=== PATIENT | female | born 1990 | race Caucasian/White ===

== ENCOUNTER 2016-09-10 06:44 | Inpatient (IN) | payer BC ==
[~2016-09-10] VITALS: Ht 167.6 cm; Wt 106.7 kg
--- NOTE | ~2016-09-10 | HP ---
PATIENT'S NAME: SHARRON FELTON [facility] AGE: 26 Y [address] ROOM: [address] [address] LOCATION: [facility] ADMIT DATE: 09/10/2016 History & Physical DISCHARGE DATE: FAMILY PHYSICIAN: Rae Barrett MD ATTENDING PHYSICIAN: Rae Barrett DATE OF SERVICE: This is a 26-year-old patient at 40 weeks 6 days. She is and was seen by Dr. Rae Barrett, throughout her . She had unfavorable cervix today at 40 weeks, 6 days. Cytotec was placed followed by Pitocin. Decelerations started with the Pitocin and they looked variable. Now, she is having less variables, but having some late decelerations after the contractions. The Pitocin has been turned off for over an hour, oxygen was on, and IV hydration was started. She has been consented for section. She understands surgical risks to include, but not limited to, bleeding, transfusion, infection, injury to other organs, and need for additional surgery. Appropriate consents were signed and witnessed. She also understands she will need sections in the future. We will get a cord pH thick and go from there. MD JOSELYN KELLEY/kellee /[id number] D: [id number] T: [id number] HISTORY & PHYSICAL
--- NOTE | ~2016-09-10 | OR ---
PATIENT'S NAME: SHARRON FELTON [facility] AGE: 26 Y [address] ROOM: [place] [address] LOCATION: [facility] ADMIT DATE: 09/10/2016 OR/Procedure Report DISCHARGE DATE: FAMILY PHYSICIAN: Rae Barrett MD ATTENDING PHYSICIAN: Rae Barrett SURGEON: Michelle Serrano MD CUSTOMER COUNTER ASSOCIATE: Arnold. DATE OF PROCEDURE: 09/10/2016 PREOPERATIVE DIAGNOSES: 1. Intrauterine at 40 weeks. 2. decelerations. 3. Intolerance to Pitocin. POSTOPERATIVE DIAGNOSES: 1. Intrauterine at 40 weeks. 2. decelerations. 3. Intolerance to Pitocin. PROCEDURE: Primary low transverse section. ANESTHESIA: Epidural. BLOOD LOSS: 500 mL. COMPLICATIONS: None. DESCRIPTION OF PROCEDURE: The patient was taken into the operating room and her epidural anesthetic was at an appropriate surgical level. A Coto catheter was already in place. So, she is prepped and draped. A Pfannenstiel skin incision was made with a knife and carried down to the level of fascia. The fascia was nicked in the midline. The incision was carried out laterally. The fascia sharply and bluntly dissected from the underlying rectus muscles. The peritoneum was opened sharply and incised. The bladder blade was placed. Bladder reflection was taken down sharply and placed behind the bladder blade. A low transverse uterine incision was made with a knife. The incision was taken out laterally at the bead forming machine set up operator's fingers. Bag of water was ruptured and found to be clear. vertex was grasped. I do have to flex the vertex to get it over the uterine incision. Shoulders and body were delivered. Baby girl lets out a spontaneous cry as her cord was doubly clamped and cut. She was handed off to the warmer after she was shown to the mother. score of 8 and 9 are assigned and she weighed 8 pounds 11 ounces. A three-vessel cord was noted. Placenta delivered manually and intact. The uterus was exteriorized. Tubes and ovaries looked normal. The uterine incision was closed in a running locking stitch with 0 chromic. A second imbricating PATIENT'S NAME: SHARRON FELTON [facility] AGE: 26 Y [address] ROOM: [place] [id number] LOCATION: [facility] ADMIT DATE: 09/10/2016 OR/Procedure Report DISCHARGE DATE: FAMILY PHYSICIAN: Rae Barrett MD ATTENDING PHYSICIAN: Rae Barrett stitch was performed. One suture of 0 Vicryl was nicked in the midline. The uterus was re-placed within the peritoneal cavity. The colic gutters were inspected found to be dry. 2-0 Vicryl's were used to close the peritoneum, 0 Vicryl was used to close the fascia. 2-0 Vicryl was used to close the subcutaneous adipose tissue and 4-0 Vicryl was used to close the skin. The patient tolerated the procedure well. She and baby are doing well in recovery. MICHELLE SERRANO MD K[facility]/modl /[id number] d: 09/11/16 0130 t: 09/25/16 0732, OPERATIVE SUMMARY
[~2016-09-10 06:44] MED LIST: PRENATAL 1+1)(P1 TAB PO; TUMS200 MG PO
[2016-09-10 07:37] LABS: BASOPHIL % 0.2 %; EOSINOPHIL % 0.3 %; HEMATOCRIT 37.5 % (33.0-46.0); HEMOGLOBIN 12.1 g/dL (11.0-15.0); IMMATURE GRANULOCYTE # 0.1 K/uL (0.0-0.3); IMMATURE GRANULOCYTE % 0.5 %; LYMPHOCYTE # 1.9 K/uL (0.8-4.0); LYMPHOCYTE % 14.6 %; MCH 27.6 pg (27.0-34.0); MCHC 32.3 gm/dL (32.0-36.5); MCV 85.6 fl (83.0-98.0); MPV 10.5 fl (9.4-12.4); NEUTROPHIL # (ANC) 9.8 K/uL (1.8-7.8); NEUTROPHIL % 76.4 %; NRBC % 0 /100WBC (0-0.00); PLATELET COUNT 223 K/uL (150-450); RBC 4.38 M/uL (3.50-5.00); RDW-CV 14.5 % (11.9-14.6); WBC 12.8 K/uL (4.0-11.0)
[2016-09-10 18:41] LABS: PCO2 48 mmHg (35-45)
[2016-09-10 18:44] LABS: BICARBONATE 22.4 mmol/L (18.0-23.0); PO2 14 mmHg (80-90)
--- NOTE | 2016-09-10 18:48 | NUR ---
Last VS: T:98.4 P:87 R: 16 BP: 144/91 Pain ratin. Last pain med: Epidural Medicated at: ongoing Effective: Yes FHT: 150's Dilatation: 3 Effacement %: 100 Station: -3 Significant event: Cytotec placed this am. Pitocin started at 1200, was up to 9mu/min then decreased to 5mu/min due to fht's variables. Epidural placement at 3cms and pitocin discontinued due to fht's lates and variables with occasional prolonged decel. Patient taken to OR for a code yellow for fht's. *.
--- NOTE | 2016-09-11 04:23 | NUR ---
VSS. Pain rating 5. Last had Percocet at 0340. Next due at 0740. Next Toradol at 0645. Fundus firm, 1 down, midline. Small flow. Did have some free flow with a couple fundal checks but fundus firm with massage and bleeding slowed. Passed a 4cm clot approx 2029, no clots noted since then. Has been up to BR x1 and voided. Pneumatic leg pumps remain on. Incision covered with microfoam dressing, clean, dry, and intact. Not passing flatus yet. Saline lock to right hand.
[2016-09-11 06:17] LABS: BASOPHIL % 0.1 %; EOSINOPHIL % 0.2 %; HEMATOCRIT 31.4 % (33.0-46.0); HEMOGLOBIN 10.3 g/dL (11.0-15.0); IMMATURE GRANULOCYTE # 0.1 K/uL (0.0-0.3); IMMATURE GRANULOCYTE % 0.4 %; LYMPHOCYTE # 2.3 K/uL (0.8-4.0); LYMPHOCYTE % 14.4 %; MCH 28.1 pg (27.0-34.0); MCHC 32.8 gm/dL (32.0-36.5); MCV 85.6 fl (83.0-98.0); MONOCYTE # 1.2 K/uL (0.0-1.0); MONOCYTE % 7.9 %; MPV 10.3 fl (9.4-12.4); NEUTROPHIL # (ANC) 12.1 K/uL (1.8-7.8); NRBC % 0 /100WBC (0-0.00); PLATELET COUNT 190 K/uL (150-450); RBC 3.67 M/uL (3.50-5.00); RDW-CV 14.6 % (11.9-14.6); WBC 15.6 K/uL (4.0-11.0)
--- NOTE | 2016-09-11 15:43 | NUR ---
Last VS: T:98.8 P:83 R: 14 BP: 133/80 Pain rating: . Last pain med: Medicated at: Effective: R Lung sounds: CLEAR L Lung sounds: CLEAR Fundus: FIRM AND 1 FINGER DOWN Lochia: , Breasts: , Nipples: Incision: , Incision appearance: MIRCOFOAM DRESSING REMOVED DURING SHOWER. INCISION CLEAN AND DRY WITH SUTURES AND STRIPS INTACT. Incision closure: Bowel sounds: PRESENT Passing flatus: YES Voiding well: UP AND VOIDING WITHOUT PROBLEMS Significant event: .I TOOK SALINE LOCK OUT. PATIENT HAS WALKED THE HALLWAY X3.
--- NOTE | 2016-09-12 04:58 | NUR ---
VSS. FUNDUS FIRM, EVEN 1 DOWN. SMALL FLOW. STERRI STRIPS INTACT. PASSING FLATUS. RHOGAM GIVEN. MOTRIN LAST AT 0346. BREAST FED LAST AT 0400.
--- NOTE | 2016-09-12 17:53 | NUR ---
Last VS: T:99.0 P:94 R: 16 BP: 146/79 Pain rating: . Last pain med: Motrin AT 1600 PERCOCET AT 1051 Medicated at: Effective: Breasts: , Nipples: USED SHIELD OCC Fundus:, , WNL Lochia: , SM INCISION: SUTURES AND STRIPS Voiding well: YES Significant event: .UP AD JUSTINA. NEEDS ENCOURAGEMENT
--- NOTE | 2016-09-13 05:43 | NUR ---
VSS. FUNDUS FIRM, EVEN 1 DOWN. SMALL FLOW. STERRI STRIPS INTACT. PERCOCET AND MOTRIN LAST AT 0053. WILL GO HOME TODAY.
[2016-09-13] MEDS ORDERED: TUMS200 MG (12:18)
[2016-09-13] MEDS ORDERED: PERCOCET 5-3251 EACH PO (12:19)
[2016-09-13] MEDS ORDERED: MOTRIN800 MG PO (12:19)
== END 2016-09-13 12:00 | disposition disaster alternative care site (69) | DRG 766 ==
LOC: GOBM 06:44 → GOBS 06:44 → GOBM 06:45 → GOBS 18:00
PROVIDERS: Obstetrics & Gynecology; ADMIT Family Medicine
PROC: 10D00Z1 Extraction of Products of Conception, Low, Open Approach (ICD-10-PCS; principal; 2016-09-10)
PROC: 3E0P7GC Introduction of Other Therapeutic Substance into Female Reproductive, Via Natural or Artificial Opening (ICD-10-PCS; principal; 2016-09-10)
DX: O76 Abnormality in fetal heart rate and rhythm complicating labor and delivery (principal); O62.1 Secondary uterine inertia; Z37.0 Single live birth; Z3A.40 40 weeks gestation of pregnancy
CPT/HCPCS: J0690; J1885; J2001; J2590; J2791; J3010; J7120